=== PATIENT | female | born 1990 | race Caucasian/White ===

== ENCOUNTER 2017-06-03 05:21 | Emergency (ER) | payer MEDICAID ==
[~2017-06-03] VITALS: Ht 167.6 cm; Wt 65.0 kg
[2017-06-03] MEDS ORDERED: KETOROLAC 30MG/ML VIAL IV ONE (07:15)
[2017-06-03] MEDS ORDERED: ONDANSETRON HCL 4MG/2ML VIAL IV ONE (08:15)
[2017-06-03 11:09] VITALS: BP 127/66
== END 2017-06-03 11:12 | disposition home or self-care (01) ==
LOC: ER 05:25
DX: S00.83XA Contusion of other part of head, initial encounter (principal); J32.0 Chronic maxillary sinusitis; Y08.89XA Assault by other specified means, initial encounter
CPT/HCPCS: 70450; 70486; 72125; 81025; 96374; 96375; 99284; J1885; J2405; Z7610